=== PATIENT | male | born 1985 | race Caucasian/White ===

== ENCOUNTER 2016-12-08 11:11 | Emergency (ER) | payer OTHER ==
[~2016-12-08] VITALS: Ht 185.4 cm; Wt 169.0 kg
[~2016-12-08 11:11] MED LIST: ASPIR-LOW81 MG PO; AUGMENTIN875 MG PO; BACTRIM,SEPT1 TABLET PO; CARDIZEM30 MG PO; CEFTIN500 MG PO; HYDROCODON-ACE1 EAC7 PO; KEFLEX500 MG PO; LISINOPRIL-HCTZ 20-2; LO-DOSE ASPIRIN81 M1 PO; LOPRESSOR25 MG PO; LORTAB 5-325 M1 EACH PO; MOTRIN800 MG PO; NAPROSYN500 MG PO; PEPTO BISMOL262 MG PO; PERCOCET 5/31 TABLET PO; PROTONIX40 MG PO; ST. JOSEPH ASPI81 MG PO; TUMS500 MG PO; ULTRAM50 MG PO; ZANTAC150 MG PO; ZESTORETIC 20-1 EAC1 NG; ZESTORETIC 20-1 EAC1 PO; ZOFRAN ODT8 MG PO; ZOFRAN4 MG PO
[2016-12-08] MEDS ORDERED: FLEXERIL10 MG PO (12:58)
[2016-12-08] MEDS ORDERED: MOTRIN800 MG PO (12:58)
[2016-12-08 13:10] VITALS: BP 142/78
== END 2016-12-08 13:11 | disposition home or self-care (01) ==
LOC: EME 11:11
DX: S39.012A Strain of muscle, fascia and tendon of lower back, initial encounter (principal); X50.0XXA Overexertion from strenuous movement or load, initial encounter
CPT/HCPCS: 72100; 99281; 99284; J1885

== ENCOUNTER 2017-02-21 06:13 | Emergency (ER) | payer OTHER ==
[~2017-02-21] VITALS: Ht 185.4 cm; Wt 165.9 kg
[~2017-02-21 06:13] MED LIST changes: +FLEXERIL10 MG PO
[2017-02-21 07:01] LABS: HEMATOCRIT 48.7 % (38.0-50.0); MCH 30.3 PG (29.0-34.0); MCHC 34.5 G/DL (30.0-36.0); MCV 87.9 FL (86-99); MEAN PLAT.VOLUME 8.3 uM^3 (9.0-12.4); PLATELET COUNT 259 K/uL (156-360); RBC DIS.WIDTH-CV 14.1 % (11.8-14.6); RBC DIS.WIDTH-SD 45.8 % (39-53); RED BLOOD COUNT 5.54 M/uL (4.00-5.50); WHITE BLOOD COUNT 12.1 K/uL (4.1-10.2)
[2017-02-21 07:28] LABS: D-DIMER ELISA 0.26 mg/L FEU (< 0.57)
[2017-02-21 07:49] LABS: TROP-I INTERPRETATION NEGATIVE; TROPONIN-I < 0.01 ng/mL (0.0-0.30)
[2017-02-21 08:10] LABS: ANION GAP 12 MEQ/L (2-14); CHLORIDE 108 MEQ/L (99-109); MAGNESIUM 2.2 mg/dl (1.3-2.7); POTASSIUM 4.1 MEQ/L (3.7-5.4); SAMPLE HEMOLYSIS CHECK 1; SAMPLE ICTERIC CHECK 0; SAMPLE LIPEMIA CHECK 0; SODIUM 140 MEQ/L (136-147); TOTAL BILIRUBIN 0.5 MG/DL (0.0-1.0)
[2017-02-21 08:18] LABS: ALKALINE PHOSPHATASE 49 IU/L (3-129); GFR ESTIMATE (CALCULATED) > 59 mL/min/; GLUCOSE 90 mg/dL (70-99); LIPASE 22 U/L (1.0-51.0); UREA NITROGEN (BUN) 12 mg/dL (9-23)
[2017-02-21 08:55] LABS: TROP-I INTERPRETATION NEGATIVE; TROPONIN-I < 0.01 ng/mL (0.0-0.30)
[2017-02-21] MEDS ORDERED: CARDIZEM CD120 M1 PO (10:07)
[2017-02-21 10:15] VITALS: BP 146/95
== END 2017-02-21 10:18 | disposition home or self-care (01) ==
LOC: EME 06:13
PROVIDERS: Emergency Medicine
DX: I48.0 Paroxysmal atrial fibrillation (principal); F17.200 Nicotine dependence, unspecified, uncomplicated; Z88.8 Allergy status to other drugs, medicaments and biological substances; Z79.82 Long term (current) use of aspirin; I10 Essential (primary) hypertension; J45.909 Unspecified asthma, uncomplicated
CPT/HCPCS: 71010; 80053; 83690; 83735; 84100; 84443; 84484; 85027; 85379; 93005; 99281; 99285; J7030

== ENCOUNTER 2017-07-03 06:12 | Emergency (ER) | payer OTHER ==
[~2017-07-03] VITALS: Ht 185.4 cm; Wt 157.4 kg
[~2017-07-03 06:12] MED LIST changes: +CARDIZEM CD120 M1 PO
[2017-07-03 06:38] LABS: HEMATOCRIT 49.1 % (38.0-50.0); MCHC 34.2 G/DL (30.0-36.0); MCV 87.7 FL (86-99); MEAN PLAT.VOLUME 7.6 uM^3 (9.0-12.4); PLATELET COUNT 243 K/uL (156-360); RBC DIS.WIDTH-CV 13.9 % (11.8-14.6); RBC DIS.WIDTH-SD 44.4 % (39-53); WHITE BLOOD COUNT 13.2 K/uL (4.1-10.2)
[2017-07-03 06:59] LABS: TROP-I INTERPRETATION NEGATIVE; TROPONIN-I < 0.01 ng/mL (0.0-0.30)
[2017-07-03 07:51] LABS: MAGNESIUM 2.4 mg/dL (1.3-2.7)
[2017-07-03 07:52] LABS: GLUCOSE 100 mg/dL (70-99)
[2017-07-03 07:54] LABS: TOTAL BILIRUBIN 0.4 mg/dL (0.0-1.0)
[2017-07-03 07:55] LABS: ANION GAP 9 MEQ/L (2-14); CHLORIDE 111 mEq/L (99-109); POTASSIUM 3.6 mEq/L (3.7-5.4); SERUM ETHYL ALCOHOL < 10 mg/dL; SODIUM 141 mEq/L (136-147)
[2017-07-03 07:56] LABS: ALKALINE PHOSPHATASE 61 IU/L (3-129); GFR ESTIMATE (CALCULATED) > 59 mL/min/
[2017-07-03 07:57] LABS: UREA NITROGEN (BUN) 10 mg/dL (9-23)
[2017-07-03 09:24] VITALS: BP 136/86
== END 2017-07-03 09:25 | disposition home or self-care (01) ==
LOC: EME 06:12
PROVIDERS: Emergency Medicine
DX: I48.0 Paroxysmal atrial fibrillation (principal); E87.6 Hypokalemia; Z79.82 Long term (current) use of aspirin; Z90.49 Acquired absence of other specified parts of digestive tract; F17.200 Nicotine dependence, unspecified, uncomplicated
CPT/HCPCS: 71010; 80053; 83735; 84484; 85027; 93005; 99281; 99285; G0480; J7030